=== PATIENT | female | born 1960 | race Caucasian/White ===

== ENCOUNTER 2020-07-09 04:21 | Outpatient (CLI) | payer BC, SELFPAY ==
[2020-07-09 12:35] LABS: Abs Immature Grans 0.01 10^3/uL (0.0-0.06); Absolute Basophil Count 0.03 10^3/uL (0.0-0.2); Absolute Lymphocyte Count 1.81 10^3/uL (1.2-3.4); Absolute Monocyte Count 0.45 10^3/uL (0.1-0.8); Absolute Neutrophil Count 3.16 10^3/uL (1.2-6.7); Basophils % 0.5; Eosinophils % 1.8; HCT 37.3 % (36.0-46.0); Immature Grans % 0.2; Lymphocytes % 32.6; MCH 28.2 pg (27.0-33.0); MCHC 32.2 % (32.0-36.0); MCV 87.6 fL (80-95); MPV 10.1 fL (8.0-11.0); Monocytes % 8.1; Neutrophils % 56.8; Nucleated RBC 0 %; Platelet Count 225 10^3/uL (130-400); RBC 4.26 10^6/uL (3.93-5.22); RDW 13.3 % (11.7-14.6); RDW-SD 42.6 fL; WBC 5.56 10^3/uL (4.4-10.8)
== END 2020-07-09 04:22 | disposition home or self-care (01) ==
LOC: LBO 04:22
PROVIDERS: PCP Internal Medicine; Visit Provider Psychiatry & Neurology Clinical Neurophysiology
DX: G43.809 Other migraine, not intractable, without status migrainosus (principal)
CPT/HCPCS: 36415; 85025

== ENCOUNTER 2021-06-25 03:58 | Outpatient (CLI) | payer BC, SELFPAY ==
[2021-06-25 10:43] LABS: Abs Immature Grans 0.01 10^3/uL (0.0-0.06); Absolute Basophil Count 0.01 10^3/uL (0.0-0.2); Absolute Eosinophil Count 0.09 10^3/uL (0.0-0.7); Absolute Lymphocyte Count 1.48 10^3/uL (1.2-3.4); Absolute Monocyte Count 0.35 10^3/uL (0.1-0.8); Absolute Neutrophil Count 1.98 10^3/uL (1.2-6.7); Basophils % 0.3; Eosinophils % 2.3; HCT 36.7 % (36.0-46.0); HGB 11.6 g/dL (11.2-15.7); Immature Grans % 0.3; Lymphocytes % 37.8; MCH 27.8 pg (27.0-33.0); MCHC 31.6 % (32.0-36.0); Monocytes % 8.9; Neutrophils % 50.4; Nucleated RBC 0 %; Platelet Count 187 10^3/uL (130-400); RBC 4.17 10^6/uL (3.93-5.22); RDW 14.1 % (11.7-14.6); WBC 3.92 10^3/uL (4.4-10.8)
[2021-06-25 11:41] LABS: Iron 79 ug/dL (50-170)
[2021-06-25 17:23] LABS: Ferritin 11 ng/mL (10-291)
== END 2021-06-25 03:59 | disposition home or self-care (01) ==
LOC: LBO 03:58
PROVIDERS: PCP Internal Medicine; Visit Provider Family Medicine
DX: R53.83 Other fatigue (principal)
CPT/HCPCS: 36415; 82728; 83540; 85025

== ENCOUNTER 2021-08-01 04:14 | Outpatient (CLI) | payer BC, SELFPAY ==
[2021-08-01 12:59] LABS: Absolute Basophil Count 0.02 10^3/uL (0.0-0.2); Absolute Eosinophil Count 0.08 10^3/uL (0.0-0.7); Absolute Lymphocyte Count 1.66 10^3/uL (1.2-3.4); Absolute Neutrophil Count 2.02 10^3/uL (1.2-6.7); Basophils % 0.5; Eosinophils % 1.9; HCT 37.4 % (36.0-46.0); HGB 11.9 g/dL (11.2-15.7); Lymphocytes % 39.7; MCH 28.2 pg (27.0-33.0); MCHC 31.8 % (32.0-36.0); MCV 88.6 fL (80-95); MPV 10.8 fL (8.0-11.0); Monocytes % 9.6; Neutrophils % 48.3; Nucleated RBC 0 %; Platelet Count 190 10^3/uL (130-400); RBC 4.22 10^6/uL (3.93-5.22); RDW 14.6 % (11.7-14.6); RDW-SD 46.5 fL; WBC 4.18 10^3/uL (4.4-10.8)
[2021-08-01 14:57] LABS: Ferritin 87 ng/mL (8-252); Magnesium 2.2 mg/dL (1.8-2.4)
[2021-08-01 15:06] LABS: Iron 81 ug/dL (50-170)
== END 2021-08-01 04:15 | disposition home or self-care (01) ==
LOC: LBO 04:14
PROVIDERS: PCP Internal Medicine; Visit Provider Family Medicine
DX: E61.1 Iron deficiency (principal); E83.42 Hypomagnesemia
CPT/HCPCS: 36415; 82728; 83540; 83735; 85025

== ENCOUNTER → 2021-12-03 02:01 | Outpatient (CLI) | payer BC, SELFPAY ==
--- NOTE | 2021-12-03 08:02 | DI.MAMMO_ITS ---
Exam(s) MAMMO SCREENING EXAM: MAMMO SCREENING CLINICAL HISTORY: SCREENING, Z12.31 TECHNIQUE: Bilateral full field digital CC and MLO mammographic images were obtained with 3D tomosyn thesis and utilizing computer aided detection (CAD). COMPARISON: Available for comparison. FINDINGS: Masses/Architectural Distortion: None seen. Microcalcifications: No suspicious pleomorphic-type are seen. Skin Thickening/Nipple Retraction: None. IMPRESSION: 1. No significant interval change with no specific features of malignancy noted. 2. Unless there is more urgent need, screening mammography is recommended, as per [employer] guidelines. BI-RADS Category 1 - Negative Breast Density - Category C - Heterogeneously dense Breast density category C or D implies that the patient has dense breast tissue. Dense breast tissue is very common and is not abnormal but dense breast tissue can make it harder to find cancer on a ma mmogram. Also, dense breast tissue may increase their breast cancer risk. This information about the result of the mammogram report was provided to the patient to raise their awareness. Use this report when you speak with the patient about their risks for breast cancer, which includes their family hist ory. At that time, you may recommend for more screening tests (Ultrasound or MRI) as they might be us eful based on their risk. A negative radiographic report should not delay biopsy if a dominant or clinically suspicious mass is present. Up to ten percent of cancers are not identified on mammography. A negative report may reinforce clinical impression. Adenosis and dense breasts may obscure an underlying neoplasm. False positive reports average 6 to 10%. Patient will receive a letter notifying them of these results.
== END ==
PROVIDERS: PCP Internal Medicine; Visit Provider Family Medicine
DX: Z12.31 Encounter for screening mammogram for malignant neoplasm of breast (principal)
CPT/HCPCS: 77063; 77067

== ENCOUNTER → 2023-05-11 13:37 | Outpatient (BNVA) | payer MEDICARE, BC, SELFPAY | PROVIDERS: PCP Family Medicine; Referring Provider Family Medicine; Visit Provider Psychiatry & Neurology Neurology | DX: G43.109 Migraine with aura, not intractable, without status migrainosus (principal); G43.009 Migraine without aura, not intractable, without status migrainosus | CPT/HCPCS: 99215 ==

== ENCOUNTER → 2023-06-23 10:59 | Outpatient (BNVA) | payer MEDICARE, BC, SELFPAY | PROVIDERS: PCP Family Medicine; Visit Provider Nurse Practitioner Adult Health | DX: G43.009 Migraine without aura, not intractable, without status migrainosus (principal); G43.109 Migraine with aura, not intractable, without status migrainosus; R26.89 Other abnormalities of gait and mobility | CPT/HCPCS: 99214 ==

== ENCOUNTER 2023-11-17 04:38 | Outpatient (CLI) | payer MEDICARE, BC, SELFPAY ==
[2023-11-17 16:53] LABS: Ferritin 49 ng/mL (8-252)
== END 2023-11-17 04:39 | disposition home or self-care (01) ==
PROVIDERS: PCP Family Medicine; Visit Provider Family Medicine
DX: E61.1 Iron deficiency (principal); E04.1 Nontoxic single thyroid nodule; Z00.00 Encounter for general adult medical examination without abnormal findings; E55.9 Vitamin D deficiency, unspecified
CPT/HCPCS: 36415; 80053; 80061; 82306; 82728; 83540; 83550; 83735; 84443; 85025

== ENCOUNTER 2024-02-19 00:36 | Outpatient (CLI) | payer MEDICARE, SELFPAY ==
--- NOTE | 2024-02-19 | DI.MAMMO_ITS ---
Exam(s) MAMMO SCREENING EXAM: MAMMO SCREENING CLINICAL HISTORY: ADULT HEALTH EXAMINATION,MZ00.00,SCREENING. TECHNIQUE: Bilateral full field digital CC and MLO mammographic images were obtained with 3D tomosyn thesis and utilizing computer aided detection (CAD). COMPARISON: Prior mammograms were reviewed. FINDINGS: There has been no significant change in the appearance and distribution of the fibroglandular tissue. No CAD designations. There are no new spiculated masses nor malignant appearing microcalcification groups. There is no significant architectural distortion nor skin thickening-retraction. IMPRESSION: No radiographic evidence of malignancy. BI-RADS Category 1 - Negative Breast Density - Category C - Heterogeneously dense Breast density Category C or D implies that the patient has dense breast tissue. Dense breast tissue can make it harder to find cancer on a mammogram. Dense breast tissue is also associated with an incr eased risk of breast cancer. This information about the result of the mammogram report was provided to the patient to raise their awareness. Use this report when you speak with the patient about their risks for breast cancer, which includes their family history. At that time, you may recommend additional screening tests (Ultrasoun d or MRI) as these tests may add significant information. A negative radiographic report should not delay biopsy if a dominant or clinically suspicious mass is present. Up to ten percent of cancers are not identified on mammography. A negative report may reinforce clinical impression. Adenosis and dense breasts may obscure an underlying neoplasm. False positive reports average 6 to 10%. Patient will receive a letter notifying them of these results.
== END 2024-02-19 00:56 ==
LOC: DI 00:36
PROVIDERS: PCP Family Medicine; Visit Provider Family Medicine
DX: Z12.31 Encounter for screening mammogram for malignant neoplasm of breast (principal)
CPT/HCPCS: 77063; 77067

== ENCOUNTER 2025-02-14 10:22 | Outpatient (CLI) | payer MEDICARE, BC, SELFPAY ==
--- NOTE | 2025-02-14 09:56 | DI.RAD_ITS ---
Exam(s) XR KNEE LT 4V AP,LAT,CHE,PAT EXAM: XR KNEE LT 4V AP,LAT,CHE,PAT CLINICAL HISTORY: left knee pain. TECHNIQUE: 2D digital imaging was performed. Four views. COMPARISON: No exams were available for comparison FINDINGS: BONES: No acute fracture is present. No bony destructive lesion is seen. JOINTS: The knee is normally aligned. Femoral tibial joint spaces are maintained. There is moderate narrowing of the patellofemoral joint, greater laterally. There is also periarticular spurring. No joint effusion is seen. SOFT TISSUE: Normal. 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 DATA REPOSITORY: RADIATION DOSE DELIVERED:
== END 2025-02-14 10:23 | disposition home or self-care (01) ==
LOC: DIORS 10:23
PROVIDERS: PCP Family Medicine; Referring Provider Family Medicine; Visit Provider Physician Assistant
DX: M76.32 Iliotibial band syndrome, left leg (principal); M76.892 Other specified enthesopathies of left lower limb, excluding foot; M25.562 Pain in left knee
CPT/HCPCS: 99213; 73564

== ENCOUNTER → 2025-03-02 03:52 | Outpatient (CLI) | payer MEDICARE, BC, SELFPAY ==
--- NOTE | 2025-03-02 07:30 | DI.RAD_ITS ---
Exam(s) XR FOOT LT COMPLETE EXAM: XR FOOT LT COMPLETE CLINICAL HISTORY: Left foot pain,m79.672. TECHNIQUE: 2D digital imaging was performed. COMPARISON: No exams were available for comparison FINDINGS: 3 views No evidence acute fracture or diastasis of the Lisfranc joint. Great toe metatarsophalangeal joint appears un remarkable. Other MTP joints as well as interphalangeal joints appear unremarkable. Tarsometatarsal joints unremarkable. No pes planus. Small inferior calcaneal spur noted. IMPRESSION: No significant osseous findings in the foot. DATA REPOSITORY: RADIATION DOSE DELIVERED:
== END ==
PROVIDERS: PCP Family Medicine; Visit Provider Podiatrist
DX: M77.42 Metatarsalgia, left foot (principal); M67.02 Short Achilles tendon (acquired), left ankle
CPT/HCPCS: 20600; 29540; J0702; J1100; 73630